=== PATIENT | male | born 1980 | race Caucasian/White ===

== ENCOUNTER 2021-09-17 16:05 | Emergency (ER) | payer OTHER, SELFPAY | END 2021-09-17 16:10 | disposition E | LOC: ERS 16:05 → EDBD 16:05 → ERS 16:10 | DX: S21.331A Puncture wound without foreign body of right front wall of thorax with penetration into thoracic cavity, initial encounter (principal); I46.8 Cardiac arrest due to other underlying condition; E86.1 Hypovolemia; W34.00XA Accidental discharge from unspecified firearms or gun, initial encounter | CPT/HCPCS: 36430; 86900; 86901; 99285; G0390; P9016 ==